=== PATIENT | female | born 1995 | race African-American/Black ===

== ENCOUNTER 2023-12-28 22:00 | Emergency (ER) | payer MEDICAID ==
[~2023-12-28] VITALS: Ht 165.1 cm; Wt 123.0 kg
[2023-12-28 22:09] VITALS: BP 120/53; PULSE 80; RESP 14; TEMP 99.1; O2SAT 100
== END 2023-12-29 02:04 | disposition home or self-care (01) ==
LOC: ER 22:00
DX: R51.9 Headache, unspecified (principal)
CPT/HCPCS: 99284